=== PATIENT | male | born 2000 | race Caucasian/White ===

== ENCOUNTER 2023-12-29 20:45 | Emergency (ER) | payer SELFPAY ==
[~2023-12-29] VITALS: Ht 185.4 cm; Wt 112.0 kg
[2023-12-30] MEDS ORDERED: VITA500T40 PO (00:22)
[2023-12-30] MEDS ORDERED: HOME MED LIST COMPLETE! XX SCH (00:25)
[2023-12-30] MEDS ORDERED: CEPH500C PO (02:33)
[2023-12-30 02:55] VITALS: BP 147/66; TEMP 96.8; O2SAT 97
[2023-12-30] MEDS: CEPHALEXIN 500 MG CAP PO ONE (02:58)
== END 2023-12-30 03:34 | disposition home or self-care (01) ==
LOC: M ED 20:45
DX: N48.89 Other specified disorders of penis (principal); F10.10 Alcohol abuse, uncomplicated; F12.10 Cannabis abuse, uncomplicated; Z79.2 Long term (current) use of antibiotics; Z79.899 Other long term (current) drug therapy